=== PATIENT | female | born 1980 | race Caucasian/White ===

== ENCOUNTER 2017-08-11 10:12 | Emergency (ER) | payer BC | END 2017-08-11 10:25 | disposition left against medical advice (07) | LOC: UCCORT 10:12 | DX: H93.93 Unspecified disorder of ear, bilateral (principal); Z53.21 Procedure and treatment not carried out due to patient leaving prior to being seen by health care provider ==

== ENCOUNTER 2018-08-29 12:51 | Emergency (ER) | payer BC ==
[2018-08-29 13:06] VITALS: BP 135/77
--- NOTE | 2018-08-29 13:17 | ED ---
Throat Pain/Nasal Congestion - HPI Summary HPI Summary: sore throat last several days with some pain in the neck and the ears as well. did not check temperature at home. son with Strep throat - History of Current Complaint Chief Complaint: UCGeneralIllness Time Seen by Provider: 08/29/18 13:02 Hx Obtained From: Patient Onset/Duration: Gradual Onset, Lasting Days Severity: Moderate - Epiglottits Risk Factors Epiglottis Risk Factors: Negative - Allergies/Home Medications Allergies/Adverse Reactions: Allergies Allergy/AdvReac Type Severity Reaction Status Date / Time No Known Allergies Allergy Verified 08/29/18 13:06 Home Medications: Home Medications Ascorbic Acid/Multivit-Min [Emergen-C 1,000 mg Packet] 1 each PO ONCE 08/29/18 [ History Confirmed 08/29/18] Ibuprofen 600 mg PO ONCE 08/29/18 [History Confirmed 08/29/18] PMH/Surg Hx/FS Hx/Imm Hx Previously Healthy: Yes - Surgical History Surgery Procedure, Year, and Place: 4 C-SECTIONS Infectious Disease History: No Infectious Disease History: Denies: Traveled Outside the [place] in Last 30 Days - Social History Alcohol Use: Rare Substance Use Type: Reports: None Smoking Status (MU): Never Smoked Tobacco Review of Systems Constitutional: Negative Eyes: Negative Positive: Sore Throat Cardiovascular: Negative Respiratory: Negative Gastrointestinal: Negative Genitourinary: Negative Musculoskeletal: Negative Skin: Negative All Other Systems Reviewed And Are Negative: Yes Physical Exam Triage Information Reviewed: Yes Vital Signs On Initial Exam: Initial Vitals Temp Pulse Resp BP Pulse Ox 37.3 C 94 18 135/77 100 08/29/18 13:03 08/29/18 13:03 08/29/18 13:03 08/29/18 13:03 08/29/18 13:03 Vital Signs Reviewed: Yes Appearance: Positive: Well-Appearing Skin: Positive: Warm Head/Face: Positive: Normal Head/Face Inspection ENT: Positive: TMs normal, Tonsillar swelling Neck: Positive: Supple, Enlarged Nodes @ - anterior cervical nodes Cardiovascular: Positive: Normal Abdomen Description: Positive: Nontender Bowel Sounds: Positive: Present Diagnostics - Vital Signs Vital Signs Temp Pulse Resp BP Pulse Ox 08/29/18 13:03 37.3 C 94 18 135/77 100 - Laboratory Lab Statement: Any lab studies that have been ordered have been reviewed, and results considered in the medical decision making process. EENT Course/Dx - Diagnoses Provider Diagnoses: Strep pharyngitis Discharge - Sign-Out/Discharge Documenting (check all that apply): Patient Departure All imaging exams completed and their final reports reviewed: No Studies - Discharge Plan Condition: Good Disposition: HOME Prescriptions: Cephalexin CAP* [Keflex 500 CAP*] 500 mg PO TID 10 Days #30 cap Patient Education Materials: Strep Throat (DC) Referrals: Osmany Ayon DO [Primary Care Provider] - - Billing Disposition and Condition Condition: GOOD Disposition: Home
== END 2018-08-29 13:28 | disposition home or self-care (01) ==
LOC: UCCORT 12:51
DX: J02.0 Streptococcal pharyngitis (principal); M54.2 Cervicalgia; H92.03 Otalgia, bilateral
CPT/HCPCS: 87651; 99212; G0463

== ENCOUNTER 2019-03-18 19:08 | Emergency (ER) | payer BC ==
[2019-03-18 19:30] VITALS: BP 122/82
--- NOTE | 2019-03-18 19:39 | UC ---
Respiratory Complaint HPI - HPI Summary HPI Summary: Pt presents with c/o sudden onset of cough, fever, chest congestion, and wheezing X 7 days. Pt states that she has been taking OTC mucinex with no improvement of symptoms. - History of Current Complaint Chief Complaint: UCRespiratory Stated Complaint: COUGH Time Seen by Provider: 03/18/19 19:25 Hx Obtained From: Patient Hx Last Menstrual Period: 03/16/19 ?: No Onset/Duration: Sudden Onset, Lasting Weeks - 1, Worse Since - osnet Timing: Constant Severity Initially: Mild Severity Currently: Moderate Pain Intensity: 3 Character: Cough: Nonproductive Aggravating Factors: Deep Breaths, Recumbent Position Alleviating Factors: Nothing Associated Signs And Symptoms: Positive: Fever, Chills, Wheezing, Nasal Congestion - Risk Factors Pulmonary Embolism Risk Factors: Negative Cardiac Risk Factors: Negative Pseudomonas Risk Factors: Negative Tuberculosis Risk Factors: Negative - Allergies/Home Medications Allergies/Adverse Reactions: Allergies Allergy/AdvReac Type Severity Reaction Status Date / Time Sulfa (Sulfonamide Allergy See Comment Verified 03/18/19 19:30 Antibiotics) PMH/Surg Hx/FS Hx/Imm Hx Previously Healthy: Yes - Surgical History Surgical History: Yes Surgery Procedure, Year, and Place: 4 C-SECTIONS - Family History Known Family History: Positive: Cardiac Disease - Social History Occupation: Works From/At Home Lives: With Family Alcohol Use: Rare Substance Use Type: None Smoking Status (MU): Never Smoked Tobacco Have You Smoked in the Last Year: No - Immunization History Vaccination Up to Date: Yes Review of Systems All Other Systems Reviewed And Are Negative: Yes Constitutional: Positive: Fever, Chills, Fatigue Skin: Positive: Negative Eyes: Positive: Negative ENT: Positive: Sinus Congestion Respiratory: Positive: Cough Cardiovascular: Positive: Negative Gastrointestinal: Positive: Negative Genitourinary: Positive: Negative Motor: Positive: Negative Neurovascular: Positive: Negative Musculoskeletal: Positive: Myalgia Neurological: Positive: Negative Psychological: Positive: Negative Physical Exam Triage Information Reviewed: Yes Appearance: Ill-Appearing Vital Signs: Initial Vital Signs Temp 100.8 F 03/18/19 19:27 Pulse 103 03/18/19 19:27 Resp 18 03/18/19 19:27 BP 122/82 03/18/19 19:27 Pulse Ox 96 03/18/19 19:27 Vital Signs Reviewed: Yes Eye Exam: Normal ENT: Positive: Nasal congestion Dental Exam: Normal Neck exam: Normal Respiratory: Positive: Decreased breath sounds Cardiovascular: Positive: Tachycardia Musculoskeletal Exam: Normal Neurological Exam: Normal Psychological Exam: Normal Skin Exam: Normal Respiratory Course/Dx - Differential Dx/Diagnosis Differential Diagnosis/HQI/PQRI: Bronchitis, Influenza, Sinusitis Provider Diagnosis: Bronchitis, Fever and chills Discharge - Sign-Out/Discharge Documenting (check all that apply): Patient Departure All imaging exams completed and their final reports reviewed: No Studies - Discharge Plan Condition: Stable Disposition: HOME Prescriptions: Azithromycin TAB* [Zithromax TAB (Z-YUN) 250 mg #6 tabs] 2 tab PO .TODAY, THEN 1 DAILY #1 yun Benzonatate CAP* [Tessalon 100 MG CAP*] 200 mg PO Q8H PRN #30 cap PRN Reason: Cough predniSONE TAB* [Deltasone 20 MG TAB*] 20 mg PO DAILY #4 tab Patient Education Materials: Acute Bronchitis (ED) Referrals: Osmany Ayon DO [Primary Care Provider] - If Needed - Billing Disposition and Condition Condition: STABLE Disposition: Home
== END 2019-03-18 19:47 | disposition home or self-care (01) ==
LOC: UCCORT 19:08
DX: J40 Bronchitis, not specified as acute or chronic (principal); R50.9 Fever, unspecified; Z88.2 Allergy status to sulfonamides
CPT/HCPCS: 99212; G0463

== ENCOUNTER 2019-09-02 13:03 | Emergency (ER) | payer BC ==
[2019-09-02 13:43] VITALS: BP 130/72
--- NOTE | 2019-09-02 13:57 | UC ---
Ear Complaint HPI - HPI Summary HPI Summary: 39-year-old female presenting with right ear pressure 2 days. Patient states it feels like there is fluid in her ear. Denies pain. Denies drainage and hearing changes. She states she had URI symptoms last week that had since resolved. Denies fever and chills. Has not taken anything for symptom relief. - History of Current Complaint Chief Complaint: UCEar Stated Complaint: EAR COMPLAINT Hx Obtained From: Patient Hx Last Menstrual Period: 03/16/19 Pain Intensity: 0 - Allergies/Home Medications Allergies/Adverse Reactions: Allergies Allergy/AdvReac Type Severity Reaction Status Date / Time Sulfa (Sulfonamide Allergy See Comment Verified 09/02/19 13:39 Antibiotics) Home Medications: Home Medications Vit C/Ascorb Sod/Multivit-Min [Emergen-C Vitamin C] 1 dose PO ONCE 09/02/19 [ History Confirmed 09/02/19] PMH/Surg Hx/FS Hx/Imm Hx Previously Healthy: Yes - Surgical History Surgical History: Yes Surgery Procedure, Year, and Place: 4 C-SECTIONS - Family History Known Family History: Positive: Cardiac Disease, Non-Contributory - Social History Alcohol Use: None Substance Use Type: None Smoking Status (MU): Never Smoked Tobacco Have You Smoked in the Last Year: No - Immunization History Vaccination Up to Date: Yes Review of Systems All Other Systems Reviewed And Are Negative: Yes Constitutional: Positive: Negative. Negative: Fever, Chills ENT: Positive: Ear Ache - right, Sinus Congestion - last week. Negative: Sore Throat Respiratory: Positive: Negative Cardiovascular: Positive: Negative Gastrointestinal: Positive: Negative Neurological: Positive: Negative Physical Exam - Summary Physical Exam Summary: Vital Signs Reviewed: Yes A+Ox3, no distress Eyes: Conjunctiva Clear ENT: Hearing grossly normal, TM x 2 clear, moist, uvula midline, no exudate, no erythema Neck: Positive: Supple Respiratory: Positive: No respiratory distress, No accessory muscle use + CTA throughout no w/r Cardiovascular: RRR nl s1, s2 no m/r Musculoskeletal Exam: BERKOWITZ x 4 without difficulty Neurological: Positive: Alert Psychological: Positive: age appropriate behavior Skin: Positive: no rash, no ecchymosis Vital Signs: Initial Vital Signs Temp 98.7 F 09/02/19 13:40 Pulse 73 09/02/19 13:40 Resp 18 09/02/19 13:40 BP 130/72 09/02/19 13:40 Pulse Ox 100 09/02/19 13:40 Ear Complaint Course/Dx - Course Course Of Treatment: Patient presenting with R ear pressure "fluid feeling" x2 days after URI symptoms last week. Patient with normal TMs b/l. Instructed to take otc decongestants and flonase for symptom relief. Instructed to follow up with pcp if symptoms worsen or persist. Patient voiced understanding and agreed with treatment plan. - Differential Dx/Diagnosis Differential Diagnosis/HQI/PQRI: Otitis Media, URI Provider Diagnosis: Pressure sensation in right ear Discharge ED - Sign-Out/Discharge Documenting (check all that apply): Patient Departure All imaging exams completed and their final reports reviewed: No Studies - Discharge Plan Condition: Stable Disposition: HOME Prescriptions: Fluticasone NASAL SPRAY 50MCG* [Flonase NASAL SPRAY 50MCG*] 2 spray BOTH NARES DAILY PRN #1 btl PRN Reason: Congestion Patient Education Materials: Earache (ED) Referrals: Osmany Ayon DO [Primary Care Provider] - If Needed Additional Instructions: You have no signs of an ear infection today. Take an over the counter decongestant and use Flonase to help alleviate symptoms. Increase your fluid intake. Follow up with you primary care provider if symptoms worsen or do not resolve within 7 days. - Billing Disposition and Condition Condition: STABLE Disposition: Home - Attestation Statements Provider Attestation: I was available for consult. This patient was seen by the ANA LUISA. The patient was not presented to, seen by, or examined by me. -Krystin
== END 2019-09-02 14:12 | disposition home or self-care (01) ==
LOC: UCCORT 13:03
DX: H93.8X1 Other specified disorders of right ear (principal); Z88.2 Allergy status to sulfonamides
CPT/HCPCS: 99212; G0463

== ENCOUNTER 2019-09-04 16:10 | Emergency (ER) | payer BC ==
[2019-09-04 17:02] VITALS: BP 119/70
--- NOTE | 2019-09-04 17:08 | UC ---
Throat Pain/Nasal Jack HPI - HPI Summary HPI Summary: Pt was seen here on thursday for right ear pain. No ear infection. Pt now c/o pain right throat. Slight coough as well.Concerned about strep. has felt feverish today. - History of Current Complaint Chief Complaint: UCRespiratory Stated Complaint: SORE THROAT Time Seen by Provider: 09/04/19 16:33 Hx Obtained From: Patient Hx Last Menstrual Period: 08/22/18 ?: No Onset/Duration: Sudden Onset, Lasting Days Severity: Mild Pain Intensity: 3 Associated Signs & Symptoms: Positive: Dysphagia, Sinus Discomfort, Fever - Allergies/Home Medications Allergies/Adverse Reactions: Allergies Allergy/AdvReac Type Severity Reaction Status Date / Time Sulfa (Sulfonamide Allergy See Comment Verified 09/04/19 16:53 Antibiotics) Home Medications: Home Medications Ibuprofen TAB* [Advil TAB*] 200 mg PO Q6H PRN 09/04/19 [History Confirmed ] PMH/Surg Hx/FS Hx/Imm Hx Previously Healthy: Yes - Surgical History Surgical History: Yes Surgery Procedure, Year, and Place: 4 C-SECTIONS - Family History Known Family History: Positive: Cardiac Disease, Non-Contributory - Social History Alcohol Use: Occasionally Substance Use Type: None Smoking Status (MU): Never Smoked Tobacco Have You Smoked in the Last Year: No - Immunization History Vaccination Up to Date: Yes Review of Systems All Other Systems Reviewed And Are Negative: Yes Constitutional: Positive: Fever, Fatigue ENT: Positive: Sore Throat, Ear Ache, Nasal Discharge, Sinus Congestion Respiratory: Positive: Cough Neurological: Positive: Headache Is Patient Immunocompromised?: No Physical Exam Triage Information Reviewed: Yes Appearance: Well-Nourished, Ill-Appearing, Pain Distress Vital Signs: Initial Vital Signs Temp 100.4 F 09/04/19 16:55 Pulse 104 09/04/19 16:55 Resp 18 09/04/19 16:55 BP 119/70 09/04/19 16:55 Pulse Ox 100 09/04/19 16:55 Vital Signs Reviewed: Yes Eye Exam: Normal ENT: Positive: Pharyngeal erythema, TM bulging - right Neck exam: Normal Respiratory Exam: Normal Cardiovascular Exam: Normal Abdominal Exam: Normal Musculoskeletal Exam: Normal Neurological Exam: Normal Psychological Exam: Normal Skin Exam: Normal Throat Pain/Nasal Course/Dx - Course Course Of Treatment: hx obtained, exam performed ,meds reviewed, rapid flu and strep obtained. - Differential Dx/Diagnosis Differential Diagnosis/HQI/PQRI: Influenza, Laryngitis, Pharyngitis, Sinusitis, URI Provider Diagnosis: Influenza A Discharge ED - Sign-Out/Discharge Documenting (check all that apply): Patient Departure All imaging exams completed and their final reports reviewed: No Studies - Discharge Plan Condition: Stable Disposition: HOME Patient Education Materials: Influenza (DC) Referrals: Osmany Ayon DO [Primary Care Provider] - Additional Instructions: 1. REST 2. Clear fluids 3. ibuprofen and tylenol for pain and fever 4. Heat and massage the neck under the ear to help with ear drainage. 5. Follow up with any symptoms that are not being managed with conservative treatment - Billing Disposition and Condition Condition: STABLE Disposition: Home - Attestation Statements Provider Attestation: I was available for consult. This patient was seen by the ANA LUISA. The patient was not presented to , seen by or examined by al -Adryan Dasilva MD
[2019-09-04 17:22] LABS: Influenza A Molecular POSITIVE (Negative)
== END 2019-09-04 17:44 | disposition home or self-care (01) ==
LOC: UCCORT 16:10
DX: J10.1 Influenza due to other identified influenza virus with other respiratory manifestations (principal); H92.01 Otalgia, right ear; Z88.2 Allergy status to sulfonamides
CPT/HCPCS: 87651; 99211; G0463